=== PATIENT | female | born 1995 | race American Indian/Alaskan Native ===

== ENCOUNTER 2019-04-29 23:36 | Emergency (ER) | payer OTHER ==
[2019-04-29] MEDS ORDERED: SOLU-Medrol IV ONE (23:46)
--- NOTE | 2019-04-29 23:49 | Emergency Department Report ---
ED Allergic Reaction HPI - General Stated complaint: ALLERGIC REACTION Time Seen by Provider: 04/29/19 23:36 Source: patient, EMS Mode of arrival: Stretcher Limitations: No Limitations - History of Present Illness Initial Comments: Patient is a 24-year-old female that presents to emergency room with complaints of allergic reaction. Patient states she is allergic to shellfish and she ate shellfish tonight. Patient took an EpiPen prior to arrival. Patient brought in by EMS. EMS gave the patient Benadryl. Patient states that prior to taking the Benadryl and EpiPen and she was having difficulties breathing and feeling like her throat was closing. Patient also complained this time is sore throat. Patient is not having a difficulty breathing. Patient denies wheezing and coughing. Patient denies chest pain shortness of breath this time. MD Complaint: allergic reaction, facial swelling -: Sudden Exposure: food Symptoms: itching, facial swelling, lip swelling, difficulty swallowing, difficulty breathing. denies: nausea, vomiting, abdominal pain Severity: severe Treatment Prior to Arrival: benadryl, epinephrine Previous Allergy History: anaphylaxis - Related Data Previous Rx's Medication Instructions Recorded Last Taken Type EPINEPHrine [Epipen 2-Vidal] 0.3 mg IM ONCE PRN #1 pack 04/30/19 Unknown Rx methylPREDNISolone [Medrol 4MG 4 mg PO DAILY 6 Days #1 tab.ds.pk 04/30/19 Unknown Rx DOSEPAK (21 tabs)] Allergies Allergy/AdvReac Type Severity Reaction Status Date / Time shellfish derived Allergy Swelling Verified 04/30/19 00:13 ED Review of Systems ROS: Stated complaint: ALLERGIC REACTION Other details as noted in HPI Constitutional: denies: chills, fever Eyes: denies: eye pain, eye discharge, vision change ENT: throat pain. denies: ear pain Respiratory: shortness of breath. denies: cough, wheezing Cardiovascular: denies: chest pain, palpitations Endocrine: no symptoms reported Gastrointestinal: denies: abdominal pain, nausea, diarrhea Genitourinary: denies: urgency, dysuria, discharge Musculoskeletal: denies: back pain, joint swelling, arthralgia Skin: denies: rash, lesions Neurological: denies: headache, weakness, paresthesias Psychiatric: denies: anxiety, depression Hematological/Lymphatic: denies: easy bleeding, easy bruising ED Past Medical Hx - Past Medical History Previous Medical History?: No - Surgical History Past Surgical History?: No - Family History Family history: no significant - Social History Smoking Status: Never Smoker Substance Use Type: None - Medications Home Medications: Home Medications Medication Instructions Recorded Confirmed Last Taken Type EPINEPHrine [Epipen 2-Vidal] 0.3 mg IM ONCE PRN #1 pack 04/30/19 Unknown Rx methylPREDNISolone [Medrol 4MG 4 mg PO DAILY 6 Days #1 tab.ds.pk 04/30/19 Unknown Rx DOSEPAK (21 tabs)] ED Physical Exam - General General appearance: alert, in no apparent distress - Head Head exam: Present: atraumatic, normocephalic - Eye Eye exam: Present: normal appearance - ENT ENT exam: Present: mucous membranes moist - Neck Neck exam: Present: normal inspection - Respiratory Respiratory exam: Present: normal lung sounds bilaterally. Absent: respiratory distress, wheezes, rales, rhonchi, stridor - Cardiovascular Cardiovascular Exam: Present: regular rate, normal rhythm. Absent: systolic murmur, diastolic murmur, rubs, gallop - GI/Abdominal GI/Abdominal exam: Present: soft, normal bowel sounds - Extremities Exam Extremities exam: Present: normal inspection - Back Exam Back exam: Present: normal inspection - Neurological Exam Neurological exam: Present: alert, oriented X3 - Psychiatric Psychiatric exam: Present: normal affect, normal mood - Skin Skin exam: Present: warm, dry, intact, normal color. Absent: rash ED Course Vital Signs 04/29/19 04/29/19 04/30/19 23:45 23:50 00:00 Temperature 98 F 98 F Pulse Rate 91 H 96 H Respiratory 13 13 Rate Blood Pressure 116/61 Blood Pressure 116/61 [Left] O2 Sat by Pulse 97 97 97 Oximetry - Reevaluation(s) Reevaluation #1: Patient states she is feeling fine. Patient denies toe pain. Patient denies shortness of breath. Patient states she is back to baseline. We will monitor patient and then discharged home 04/30/19 00:45 Reevaluation #2: pt is resting comfortably. Patient denies any symptoms. Patient states she is back to baseline. Discussed all clinical findings with patient. Patient is stable for discharge. Patient will be discharged home. Patient agrees to plan of care. Patient given discharge instructions. Patient voiced understanding of discharge instructions. 04/30/19 01:08 Reevaluation #3: Patient is asymptomatic. Patient is stable for discharge. We will activate patient is discharged 04/30/19 01:39 ED Medical Decision Making - Medical Decision Making Patient is a 24-year-old female that presents emergency room for an flex secondary to shellfish. Patient consumed shellfish and has a history of anaphylaxis due to shellfish and oriented EpiPen. Patient use an EpiPen prior to arrival. Patient was given Benadryl by EMS. Patient's symptoms dramatically improved upon arrival. Patient only complaint in the ER stroke pain. Patient's shortness of breath and difficulty breathing have resolved prior to arrival. Patient given Solu-Medrol and throat pain resolved. Patient stable. Patient stable for discharge. Patient given discharge instructions. Patient will be given another EpiPen since she doesn't have anymore. Patient given a Medrol Dosepak. - Differential Diagnosis anaphylaxis. Suspect. Throat pain. Allergic reaction Critical Care Time: Yes Critical care attestation.: If time is entered above; I have spent that time in minutes in the direct care of this critically ill patient, excluding procedure time. Critical Care Time: 35 minutes ED Disposition Clinical Impression: Throat pain, SOB (shortness of breath) Allergic reaction Qualifiers: Encounter type: initial encounter Qualified Code(s): T78.40XA - Allergy, unspecified, initial encounter Anaphylactic reaction Qualifiers: Encounter type: initial encounter Qualified Code(s): T78.2XXA - Anaphylactic shock, unspecified, initial encounter Disposition: TO HOME OR SELFCARE Is pt being admited?: No Does the pt Need Aspirin: No Condition: Stable Instructions: Food Allergy (ED), Allergies (ED) Additional Instructions: Patient to follow-up with primary care in 2-3 days. Patient to take Tylenol or ibuprofen when necessary for pain. Patient to return to ER if condition worsens. Patient to take meds as directed. Patient to increase water. Patient to rest. Prescriptions: EPINEPHrine [Epipen 2-Vidal] 0.3 mg IM ONCE PRN #1 pack PRN Reason: Anaphylaxis methylPREDNISolone [Medrol 4MG DOSEPAK (21 tabs)] 4 mg PO DAILY 6 Days #1 tab.ds.pk Referrals: DEMETRA POE MD [Primary Care Provider] - 3-5 Days Time of Disposition: 01:08
[2019-04-30 01:55] VITALS: BP 111/50
== END 2019-04-30 01:50 | disposition home or self-care (01) ==
LOC: ED 23:36
DX: T78.40XA Allergy, unspecified, initial encounter (principal); T78.2XXA Anaphylactic shock, unspecified, initial encounter; Z91.013 Allergy to seafood; X58.XXXA Exposure to other specified factors, initial encounter
CPT/HCPCS: 96374; 99283; J2930